=== PATIENT | female | born 1960 | race Caucasian/White ===

== ENCOUNTER 2018-11-21 19:08 | Emergency (ER) | payer SELFPAY ==
[~2018-11-21] VITALS: Ht 152.4 cm; Wt 54.5 kg
[2018-11-21 19:10] VITALS: Ht 152.4 cm; Wt 54.5 kg
--- NOTE | 2018-11-21 19:19 | ERD ---
ER Documentation Chief Complaint Chief Complaint abdominal pain/left shoulder pain x 2 days HPI 58-year-old female with a history of diabetes presenting with generalized abdominal pain for the past 3 days. She has had associated fever. She is unable to describe the pain any further. The pain is about a 6 out of 10, nonradiating, without alleviating or exacerbating factors. No associated nausea, vomiting, diarrhea, constipation, melena, hematochezia, or dysuria. 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 Medications Home Meds Active Scripts Ciprofloxacin Hcl* (Ciprofloxacin Hcl*) 500 Mg Tablet, 500 MG PO BID for 7 Days, TAB Prov:CORIN KEATING MD 11/21/18 Ibuprofen* (Motrin*) 400 Mg Tab, 400 MG PO Q6H PRN for PAIN AND OR ELEVATED TEMP, #30 TAB Prov:CORIN KEATING MD 11/21/18 Reported Medications Metformin* (Glucophage*) 1,000 Mg Tablet, 1000 MG PO BID, #60 TAB 11/21/18 Allergies Allergies: Coded Allergies: No Known Drug Allergies (Verified Allergy, Unknown, 11/21/18) PMhx/Soc Medical and Surgical Hx: pt denies Surgical Hx Hx Cardiac Disorders: No Hx Miscellaneous Medical Probl: Yes (Diabetes) Hx Alcohol Use: No Hx Substance Use: No Hx Tobacco Use: No Smoking Status: Never smoker FmHx Family History: diabetes Physical Exam Vitals Vital Signs Date Temp Pulse Resp B/P (MAP) Pulse Ox O2 O2 Flow FiO2 Time Delivery Rate 11/21/18 99.5 90 19 126/65 97 Room Air 22:53 (85) 11/21/18 99.5 99 19 120/81 97 Room Air 21:41 (94) 11/21/18 39.5 19:32 11/21/18 Nasal 19:15 Cannula 11/21/18 103.0 145 22 114/79 97 19:10 (91) Physical Exam Const: No acute distress, well-appearing, nontoxic Head: Atraumatic Eyes: Normal Conjunctiva ENT: Dry mucous membranes. normal External Ears, Nose and Mouth. Neck: Full range of motion. No meningismus. Resp: Clear to auscultation bilaterally Cardio: Tachycardic with regular rhythm, no murmurs Abd: Soft, diffuse mild tenderness with no focal tenderness, rebound, or guarding. non distended. Normal bowel sounds Skin: No petechiae or rashes Back: No midline or flank tenderness Ext: No cyanosis, or edema. Right plantar ulcer, healing well, no surrounding erythema or malodorous discharge. Nontender to palpation. Left plantar wound, closed, no erythema or underlying abscess noted. Nontender to palpation. Neur: Awake and alert, normal speech, moving all extremities Psych: Normal Mood and Affect Result Diagram: 11/21/18192811/21/181927 Results 24 hrs Laboratory Tests Test 11/21/18 19:28 11/21/18 19:29 11/21/18 20:48 11/21/18 21:14 Prothrombin Time 13.6 Sec Prothrombin Time 1.1 Ratio INR 1.03 International Normalized Ratio Activated 28.6 Sec Partial Thrombop last Time Sodium Level 134 mmol/L Potassium Level 3.9 mmol/L Chloride Level 97 mmol/L Carbon Dioxide 25 mmol/L Level Anion Gap 12 Blood Urea 15 mg/dl Nitrogen Creatinine 0.91 mg/dl Est Glomerular > 60 mL/min Filtrat Rate mL/min Glucose Level 313 mg/dl Calcium Level 9.1 mg/dl Total Bilirubin 0.3 mg/dl Direct Bilirubin 0.00 mg/dl Indirect 0.3 mg/dl Bilirubin Aspartate Amino 23 IU/L Transf (AST/SGOT ) Alanine 13 IU/L Aminotransferase (ALT/SGPT) Alkaline 111 IU/L Phosphatase Troponin I < 0.012 ng/ml Total Protein 9.0 g/dl Albumin 3.9 g/dl Globulin 5.10 g/dl Albumin/Globulin 0.76 Ratio White Blood 9.6 10^3/ul Count Red Blood Count 4.27 10^6/ul Hemoglobin 11.0 g/dl Hematocrit 33.4 % Mean Corpuscular 78.2 fl Volume Mean Corpuscular 25.8 pg Hemoglobin Mean Corpuscular 32.9 g/dl Hemoglobin Therese nt Red Cell 12.4 % Distribution Width Platelet Count 391 10^3/UL Mean Platelet 9.2 fl Volume Immature 0.300 % Granulocytes % Neutrophils % 64.2 % Lymphocytes % 28.3 % Monocytes % 6.5 % Eosinophils % 0.3 % Basophils % 0.4 % Nucleated Red 0.0 /100WBC Blood Cells % Immature 0.030 10^3/ul Granulocytes # Neutrophils # 6.1 10^3/ul Lymphocytes # 2.7 10^3/ul Monocytes # 0.6 10^3/ul Eosinophils # 0.0 10^3/ul Basophils # 0.0 10^3/ul Nucleated Red 0.0 10^3/ul Blood Cells # POC Venous 2.3 mmol/L Lactate Urine Color STRAW Urine Clarity SLIGHTLY CLOUDY Urine pH 7.0 Urine Specific 1.002 [place] Urine Ketones NEGATIVE mg/dL Urine Nitrite NEGATIVE mg/dL Urine Bilirubin NEGATIVE mg/dL Urine NEGATIVE mg/dL Urobilinogen Urine Leukocyte 2+ Zoe/ul Esterase Urine 8 /HPF Microscopic RBC Urine 24 /HPF Microscopic WBC Urine Squamous FEW /HPF Epithelial Cells Urine Bacteria FEW /HPF Urine Hemoglobin 1+ mg/dL Urine Glucose 3+ mg/dL Urine Total 1+ mg/dl Protein Lactic Acid 1.3 mmol/L Level Current Medications Medications Dose Sig/[place]het[place] Start Time Status Last (Trade) Ordered Route PRN Stop Time Admin Dose Reason Admin Sodium 1,640 ml BOLUS OVER 2 11/21/18 DC 11/21/18 Chloride HOURS STAT 19:26 19:32 (NS) IV* 11/21/18 19:28 650 mg ONCE STAT 11/21/18 DC 11/21/18 Acetaminophen PO 19:26 19:32 (Tylenol 11/21/18 19:28 Tab) Ceftriaxone 50 ml @ ONCE ONCE 11/21/18 DC 11/21/18 Sodium 100 mls/hr IVPB 20:30 20:54 11/21/18 20:59 Procedures/MDM EMERGENT LABS AND DIAGNOSTIC STUDIES: Lab Results above were reviewed and interpreted by me. CBC: Mild anemia, no evidence of infection CMP: Hyperglycemia without evidence of acidosis. No evidence of clinically significant electrolyte abnormality, renal failure, liver disease, or biliary obstruction Lipase: no evidence of pancreatitis Troponin within normal limits, not indicative of cardiac ischemia Lactate actually elevated, consistent with tissue hypoperfusion and severe sepsis UA: + evidence of infection 12-lead EKG was interpreted by Federica Keating MD: Sinus tachycardia at 131 bpm Normal axis Normal intervals No acute ST or T wave changes suggestive of acute ischemia or STEMI. Radiology Results as interpreted by Radiology below were reviewed by Ary Keating MD: Chest x-ray shows no acute abnormalities CT abdomen and pelvis shows Mild fullness right intrarenal collecting system and proximal ureter. No acute abnormalities Initial Nursing notes reviewed. Previous Medical Records requested via the Electronic Health Record. EMERGENCY DEPARTMENT COURSE / MEDICAL DECISION MAKING: Patient initially presented with fever and tachycardia and was activated as a code sepsis. She had no obvious source of infection initially. For this reason labs were done and imaging was done of the abdomen to evaluate for possible acute surgical abdomen or other infectious etiology. Patient's lactate was initially elevated, consistent with severe sepsis. However this improved after IV fluids. CT did not show any significant abnormalities. Urinalysis was positive for infection. I suspect her fever source is UTI. I have a lower suspicion for bacteremia. Her diabetic ulcers do not appear infected. Low suspicion for underlying osteomyelitis. Patient significantly improved while in the ER. She was given a dose of antibiotics here and will be discharged with prescription for ciprofloxacin. Strict return precautions were discussed with the patient. She is agreeable with discharge plan. Critical Care Time: 35 minutes Treatments/Evaluations: Close monitoring and treatment of unstable vital signs, cardiorespiratory, and neurologic status, while maintaining tight balance of fluid, respiratory, and cardiac interventions. This time includes discussing the case with the patient and the patients family. This time does not include all procedures stated elsewhere in this record. This time also includes reviewing old records, labs and radiological studies. This time includes examining and re- examining the patient. Additionally, this time also includes arranging care with admitting and consulting physicians. Departure Diagnosis: Primary Impression: Severe sepsis Additional Impressions: UTI (urinary tract infection) Urinary tract infection type: site unspecified Hematuria presence: without hematuria Qualified Codes: N39.0 - Urinary tract infection, site not specified Generalized abdominal pain Hyperglycemia Condition: Stable CORIN KEATING MD Nov 21, 2018 19:19
[2018-11-21] MEDS ORDERED: SODIUM CHLORIDE 0.9% 1L BAG IV* STA (19:26)
[2018-11-21] MEDS ORDERED: ACETAMINOPHEN 325 MG TAB PO STA (19:26)
[2018-11-21] MEDS ORDERED: CEFTRIAXONE 1 GM/50 ML (PMX) 50 ML IVPB ONE (20:30)
[2018-11-21] MEDS ORDERED: CIPR500T4 PO (22:28)
[2018-11-21] MEDS ORDERED: IBUP-1561 PO (22:28)
[2018-11-21] MEDS ORDERED: MTF1000T PO (22:51)
[2018-11-21 22:53] VITALS: BP 126/65; PULSE 90; RESP 19
== END 2018-11-21 22:53 | disposition home or self-care (01) ==
LOC: E/R 19:08
DX: A41.9 Sepsis, unspecified organism (principal); R65.20 Severe sepsis without septic shock; N39.0 Urinary tract infection, site not specified; E11.65 Type 2 diabetes mellitus with hyperglycemia; Z79.84 Long term (current) use of oral hypoglycemic drugs
CPT/HCPCS: 36415; 71045; 74176; 80053; 81001; 83605; 84484; 85025; 85610; 85730; 87040; 87086; 93005; 96374; 99285; J0696; J7030